=== PATIENT | female | born 1985 | race Two or more races ===

== ENCOUNTER 2016-08-10 22:42 | Emergency (ER) | payer BC, MEDICAID ==
[~2016-08-10] VITALS: Ht 165.1 cm; Wt 78.5 kg
[2016-08-10 23:00] VITALS: BP 112/68
--- NOTE | 2016-08-10 23:09 | Emergency Room Report ---
History of Present Illness General Chief Complaint: Abdominal Pain Source: Patient Present Illness HPI Is a 30-year-old female with history of "gastritis." He presents with right upper quadrant pain since 9:00. She said she get worse when she fatty food or spicy food. Pain radiates to her back into the left side. No diarrhea. She has occasional nausea and vomiting. Pain is 8/10. Worse with movement. Worse with palpation. No urinary complaint. Allergies: Coded Allergies: No Known Allergies (Unverified , 08/10/16) Patient History Past Medical History: none, see triage record, old chart reviewed Past Surgical History: none Pertinent Family History: none Social History: Denies: smoking Last Menstrual Period: 08/03/16 Now: No Immunizations: other Reviewed Nursing Documentation: PMH: Agreed, PSxH: Agreed Nursing Documentation-PMH Past Medical History: No Stated History Review of Systems Eye: Denies: blurred vision, eye pain ENT: Denies: ear pain, nose congestion, throat swelling Respiratory: Denies: cough, shortness of breath Cardiovascular: Denies: chest pain, palpitations Gastrointestinal: Reports: abdominal pain, nausea, vomiting, Denies: diarrhea Musculoskeletal: Denies: back pain, joint pain Skin: Denies: rash Neurological: Denies: headache, numbness Endocrine: Denies: increased thirst, increased urine Hematologic/Lymphatic: Denies: easy bruising All Other Systems: negative except mentioned in HPI Physical Exam Vital Signs Date Time Temp Pulse Resp B/P Pulse Ox O2 Delivery O2 Flow Rate FiO2 08/10/16 22:52 97.5 66 14 112/68 100 Room Air vitals normal Sp02 EP Interpretation: reviewed, normal General Appearance: well appearing, no apparent distress, alert Head: normocephalic, atraumatic Eyes: bilateral eye EOMI, bilateral eye PERRL ENT: hearing grossly normal, normal pharynx Neck: full range of motion, supple, no meningismus Respiratory: chest non-tender, lungs clear, normal breath sounds Cardiovascular #1: regular rate, rhythm, no murmur Gastrointestinal: normal bowel sounds, no mass, no organomegaly, no bruit, non- distended, tenderness - Right upper quadrant Musculoskeletal: back normal, gait/station normal, normal range of motion Neurologic: alert, oriented x3 Psychiatric: mood/affect normal Skin: warm/dry Medical Decision Making Diagnostic Impression: Primary Impression: Cholelithiases Qualified Codes: K80.20 - Calculus of gallbladder without cholecystitis without obstruction ER Course Patient presents with right upper quadrant pain consistent with gallstones. No evidence of obstruction or cholecystitis. Patient felt better now. No pain. My bedside ultrasound showed a normal gallbladder wall with multiple large gallstones. There were at least 4. Normal common bile duct. Negative Waters sign. Lab Results Impression labs normal Last Vital Signs Date Time Temp Pulse Resp B/P Pulse Ox O2 Delivery O2 Flow Rate FiO2 08/10/16 22:52 97.5 66 14 112/68 100 Room Air Status: improved Disposition: HOME, SELF-CARE Condition: Stable Scripts Hydrocodone/Acetaminophen 5-325* (HYDROCODONE/ACETAMINOPHEN 5-325*) 1 Each Tablet 1 TAB ORAL Q6H Y for For Pain, #30 TAB 0 Refills Prov: GREGG LOVING M.D. 08/11/16 Additional Instructions: Followup with your Dr. in 2-3 days. Return if symptom worsen. You may need a referral to see a surgeon. GREGG LOVING M.D. Aug 10, 2016 23:09
[2016-08-10] MEDS ORDERED: Morphine Sulfate 4mg/ml Inj IVP ONE (23:15)
[2016-08-10 23:23] LABS: APPEARANCE,URINE CLEAR; KETONES,URINE NEGATIVE (NEGATIVE); LEUKOCYTE ESTERASE ,URINE NEGATIVE (NEGATIVE); NITRITE,URINE NEGATIVE (NEGATIVE); PH,URINE 7 (4.5-8.0); PROTEIN,URINE NEGATIVE (NEGATIVE); UROBILINOGEN,URINE NORMAL MG/DL (0.0-1.0)
[2016-08-10 23:50] LABS: ALANINE AMINOTRANSFERASE 6 U/L (3-33); ALBUMIN/GLOBULIN RATIO 1.1 (1.0-2.7); ANION GAP 14 (5-15); ASPARTATE AMINO TRANSFERASE 11 U/L (5-40); CALCIUM 9.2 mg/dL (8.6-10.2); CARBON DIOXIDE 25 mEQ/L (20-30); CHLORIDE 98 mEQ/L (98-107); CREATININE 0.6 mg/dL (0.5-0.9); GLOMERULAR FILTRATION RATE > 60 mL/min (>60); HEMOLYSIS 6; LIPASE 78 U/L (< 60); POTASSIUM 3.6 mEQ/L (3.4-4.9); SODIUM 137 mEQ/L (135-145); TOTAL PROTEIN 7.6 g/dL (6.6-8.7)
[2016-08-11 00:03] LABS: BASOPHILS % (AUTO) 1.4 % (0.0-2.0); EOSINOPHILS % (AUTO) 1.3 % (0.0-3.0); LYMPHOCYTES % (AUTO) 33.8 % (20.0-45.0); MEAN CORPUSCULAR HEMOGLOBIN 31.3 PG (27.0-31.0); MEAN CORPUSCULAR HGB CONC 35.6 G/DL (32.0-36.0); MEAN CORPUSCULAR VOLUME 88 FL (80-99); MEAN PLATELET VOLUME 9.4 FL (6.5-10.1); MONOCYTES % (AUTO) 8.5 % (1.0-10.0); NEUTROPHILS % (AUTO) 55.1 % (45.0-75.0); PLATELET COUNT 159 K/UL (150-450); RED BLOOD COUNT 4.36 M/UL (4.20-5.40); RED CELL DISTRIBUTION WIDTH 11.6 % (11.6-14.8); WHITE BLOOD COUNT 7.4 K/UL (4.8-10.8)
[2016-08-11] MEDS ORDERED: HYDROCODON-ACE1 EA15 ORAL (00:32)
[2016-08-11 00:55] VITALS: BP 112/68
== END 2016-08-11 00:55 | disposition home or self-care (01) ==
LOC: EMR 23:12
DX: K80.20 Calculus of gallbladder without cholecystitis without obstruction (principal); M54.9 Dorsalgia, unspecified
CPT/HCPCS: 36415; 80053; 81003; 81025; 83690; 85025; 96374; 96375; 99284; J2270; J2405

== ENCOUNTER → 2016-08-20 | Outpatient (CLI) | payer BC ==
[~2016-08-20] MED LIST: HYDROCODON-ACE1 EA15 ORAL
--- NOTE | 2016-08-20 14:27 | Diagnostic Imaging Report ---
Indication:Abdominal pain Technique: Grayscale and duplex Doppler imaging of the abdomen performed. Comparison: None Findings: There are multiple gallstones demonstrated within the gallbladder. There is no wall thickening, pericholecystic fluid and sonographic Waters's is negative per technologist. The liver, demonstrated part of the pancreas, aorta and IVC, both kidneys, spleen appear unremarkable. There is no biliary ductal dilatation identified. Doppler evaluation of the main portal vein shows patency. CBD measures 2.8 mm. There is no ascites. No hydronephrosis seen. Impression: Cholelithiasis
== END | disposition home or self-care (01) ==
LOC: ULS 09:38
DX: K80.20 Calculus of gallbladder without cholecystitis without obstruction (principal)
CPT/HCPCS: 76700

== ENCOUNTER 2016-09-02 07:02 | Day surgery (SDC) | payer BC ==
--- NOTE | 2016-09-01 20:09 | Pre-op HX & Phy Repo 2 SIG ---
DATE OF ADMISSION: 09/02/2016 DATE OF SURGERY: The patient is scheduled for surgery on 09/02/2016. REASON FOR ADMISSION: Gallstones. HISTORY OF PRESENT ILLNESS: This is a 30-year-old 0, para 0, female, presents with a one-year history of episodic abdominal pain and nausea. She has had occasional vomiting with pain. She has noticed the pain after the ingestion of greasy food. The patient was in the [facility] emergency room three weeks ago after ingestion of pork. She denies any problems with fever or chills. There is no history of jaundice. PAST MEDICAL HISTORY: Previous surgeries, none. MEDICATIONS: Limited to vitamin. ALLERGIES: None known. SOCIAL HISTORY: Tobacco, none. Alcohol, rare consumption. Occupation, property management accountant. FAMILY HISTORY: His father is diabetic. The patient's mother has asymptomatic gallstones. REVIEW OF SYSTEMS: Essentially negative. She is a 0 para 0 female. PHYSICAL EXAMINATION: GENERAL: The patient is a well-developed and well-nourished female, in no acute distress. HEENT: Normocephalic. Pupils are equal and reactive to light. There is no scleral icterus. NECK: Supple without adenopathy. LUNGS: Clear. HEART: Regular rhythm. No murmurs or gallops. ABDOMEN: Soft. There are no masses or tenderness. EXTREMITIES: No clubbing, cyanosis, or edema. Peripheral pulses were intact. LABORATORY AND DIAGNOSTIC DATA: An ultrasound taken recently that showed multiple gallstones. There was no ductal dilatation. There was no thickening of the gallbladder wall. IMPRESSION: Cholelithiasis, recent biliary colic. PLAN: The patient was advised to undergo laparoscopic cholecystectomy, possible open cholecystectomy. The nature, risks and benefits of the procedure were explained. Pedro Meyers M.D. DR: CRISTINA JOB#: [id number] CC:
[2016-09-02] VITALS (14 sets, daily range): BP systolic 101–126; BP diastolic 47–66
[~2016-09-02] VITALS: Ht 165.1 cm; Wt 75.3 kg
[2016-09-02] MEDS ORDERED: VITAMIN D1000 UNI1 ORAL (07:41)
--- NOTE | 2016-09-02 09:19 | Pre-Procedure Note/Attestation ---
Pre-Procedure Note/Attestation Complete Prior to Procedure Planned Procedure: not applicable Procedure Narrative: laparoscopic cholecystectomy, possible open cholecystectomy Indications for Procedure Pre-Operative Diagnosis: cholelithiasis Attestation I attest that I discussed the nature of the procedure; its benefits; risks and complications; and alternatives (and the risks and benefits of such alternatives ), prior to the procedure, with the patient (or the patient's legal physician representative). I attest that, if there was a reasonable possibility of needing a blood transfusion, the patient (or the patient's legal physician representative) was given the [facility] standardized written summary, pursuant to the Rommel Lois Blood Safety Act ([place] Health and Safety Code # 1645, as amended). I attest that I re-evaluated the patient just prior to the surgery and that there has been no change in the patient's H&P, except as documented below: none Pedro Meyers MD September 02, 2016 09:19
[2016-09-02] MEDS ORDERED: Bupivacaine w/Epi 0.25% 30ml Vial INJ ONE (10:42)
[2016-09-02] MEDS ORDERED: Propofol 10mg/ml 20ml IV ONE (10:42)
[2016-09-02] MEDS ORDERED: Nimbex 2mg/ml Inj 10ML IVP ONE ×2 (10:42→11:00)
[2016-09-02] MEDS ORDERED: Neostigmine 1mg/ml 10ml Inj ONE ×2 (10:43→11:00)
[2016-09-02] MEDS ORDERED: Midazolam 2mg/2ml Inj ONE (11:00)
[2016-09-02] MEDS ORDERED: Glycopyrrolate 0.2mg/ml 1ml Vial ONE (11:00)
[2016-09-02] MEDS ORDERED: NS Irrig 1000ml ONE (11:00)
[2016-09-02] MEDS ORDERED: Lidocaine 1% MPF 10mg/ml 5ml ONE (11:00)
[2016-09-02] MEDS ORDERED: LR 1000ml ONE (11:00)
[2016-09-02] MEDS ORDERED: Dexamethasone 4mg/ml vial ONE (11:00)
[2016-09-02] MEDS ORDERED: Metoclopramide 10mg/2ml Inj ONE (11:00)
[2016-09-02] MEDS ORDERED: fentaNYL 100 mcg/2 mL IV ONE (11:00)
--- NOTE | 2016-09-02 12:26 | Brief Operative Note ---
Immediate Post Operative Note Operative Note Pre-op Diagnosis: cholelithiasis Procedure: laparoscopic cholecystectomy Post-op Diagnosis: cholelithiasis Surgeon: Vannesa Meyers MD Quality Eng: Shirin Aviles MD Anesthesiologist: Poly Klein CRNA Anesthesia: general Specimen: yes Complications: none Condition: stable Estimated Blood Loss: minimal Drains: none Implant(s) used?: No Pedro Meyers MD September 02, 2016 12:26
--- NOTE | 2016-09-02 12:29 | Immediate Post-Op Evaluation ---
Immediate Post-Op Evalulation Immediate Post-Op Evalulation Procedure: Lap Yelitza Date of Evaluation: September 02, 2016 Time of Evaluation: 12:29 IV Fluids: 600 Blood Pressure Systolic: 120 Blood Pressure Diastolic: 60 Pulse Rate: 50 Respiratory Rate: 14 O2 Sat by Pulse Oximetry: 100 Temperature (Fahrenheit): 97.1 Nausea: No Vomiting: No Complications none Patient Status: awake, reacts Hydration Status: adequate Drug: ancef Given Within 1 Hr of Incision: Yes LYNNETTE GARCIA CRNA September 02, 2016 12:29
[2016-09-02] MEDS ORDERED: HYDROmorphone 1mg/ml Carpuject SUBQ PRN (12:30)
[2016-09-02] MEDS ORDERED: D5 1/2NS 1,000 ML IV SCH (12:30)
[2016-09-02] MEDS ORDERED: Meperidine 25mg/0.5ml Inj IV PRN (12:30)
[2016-09-02] MEDS ORDERED: fentaNYL 100 mcg/2 mL IV PRN (12:30)
[2016-09-02] MEDS ORDERED: Tylenol #3 tab (300mg/30mg) ORAL PRN (12:30)
--- NOTE | 2016-09-02 12:31 | Anethesia Preoperative Eval ---
Anesthesia Pre-op PMH/ROS General Date of Evaluation: September 02, 2016 Time of Evaluation: 11:00 Anesthesiologist: laura ASA Score: ASA 2 Mallampati Score Class I : Soft palate, uvula, fauces, pillars visible Class II: Soft palate, uvula, fauces visible Class III: Soft palate, base of uvula visible Class IV: Only hard plate visible Mallampati Classification: Class II Surgeon: arthur Diagnosis: cholecystitis Surgical Procedure: Lap Yelitza Anesthesia History: none Family History: no anesthesia problems Allergies: Coded Allergies: No Known Allergies (Unverified , 08/10/16) Medications: see eMAR Past Medical History Cardiovascular: Denies: CAD, HTN, [place], arrhythmia, other, valve dz Pulmonary: Denies: COPD, TSERING, asthma, other Gastrointestinal/Genitourinary: Denies: CRI, ESRD, GERD, other Neurologic/Psychiatric: Denies: CVA, TIA, dementia, depression/anxiety, other Hematology/Immune: Denies: DVT, anemia, bleeding disorder, other Musculoskeletal/Integumentary: Denies: DDD, DJD, OA, RA, edema, other PSxH Narrative: none Anesthesia Pre-op Phys. Exam Physician Exam Last Vital Signs Date Time Temp Pulse Resp B/P Pulse Ox O2 Delivery O2 Flow Rate FiO2 09/02/16 07:25 98.7 76 18 108/66 98 Room Air Constitutional: NAD Neurologic: CN 2-12 intact Cardiovascular: RRR Respiratory: CTA Gastrointestinal: S/NT/ND Airway Exam Mallampati Classification 2 Mallampati Score: Class II ROM: full Dentures: no lower, no upper Anesthesia Pre-op A/P Labs Urine Test Test 09/02/16 07:20 Urine HCG, Qualitative Negative Studies Pre-op Studies: EKG - sr Risk Assessment & Plan Plan: general Status Change Before Surgery: No Pre-Antibiotics Drug: ancef Given Within 1 Hr of Incision: Yes Time Given: 11:15 LYNNETTE GARCIA CRNA September 02, 2016 12:31
--- NOTE | 2016-09-02 12:37 | 48 Hour Post Anesthesia Eval ---
Post Anesthesia Evaluation Procedure: Lap Yelitza Date of Evaluation: September 02, 2016 Time of Evaluation: 12:36 Blood Pressure Systolic: 120 0: 60 Pulse Rate: 74 Respiratory Rate: 14 O2 Sat by Pulse Oximetry: 100 Airway: patent Nausea: No Vomiting: No Hydration Status: adequate Mental Status/LOC: patient returned to baseline Post-Anesthesia Complications: none Follow-up care needed: N/A LYNNETTE GARCIA CRNA September 02, 2016 12:37
[2016-09-02] MEDS ORDERED: Norco 5mg/325mg tab ORAL PRN (14:00)
--- NOTE | 2016-09-02 23:38 | Operative Note - Dictated ---
DATE OF OPERATION: 09/02/2016 PREOPERATIVE DIAGNOSIS: Cholelithiasis. POSTOPERATIVE DIAGNOSIS: Cholelithiasis. PROCEDURE: Laparoscopic cholecystectomy. SURGEON: ePdro Meyers M.D. NOVELTY PRINTING MACHINE OPERATOR: Shai Aviles M.D. INDICATIONS FOR SURGERY: This 30-year-old female presented with a one-year history of intermittent upper abdominal pain, accompanied by nausea. She was seen in the emergency room approximately one month prior to surgery with an attack of upper abdominal pain. Studies at that time revealed cholelithiasis on an ultrasound. She was found to have normal liver enzymes. She was advised to undergo a laparoscopic cholecystectomy. The nature of risks and benefits of the procedure were explained. OPERATIVE FINDINGS: Exploration of the abdominal cavity revealed no ascites. The liver was normal in size and texture. The gallbladder had a pliable wall. There were multiple stones in the gallbladder. The cystic duct was not dilated. No abnormalities are noted on the stomach or duodenum. OPERATIVE TECHNIQUE: With the patient in the supine position after induction of adequate general anesthesia, the abdomen was prepped and draped in sterile fashion. A time-out was called. A very small transverse incision was made below the umbilicus. A Veress needle was introduced into the peritoneal cavity. The intraperitoneal position was confirmed by saline instillation and the drop test. The abdomen was insufflated with 4 liters of carbon dioxide. The Veress needle was removed. The 5 mm trocar was introduced. The abdomen was inspected with the 30-degree angle 5 mm laparoscope and a 11 mm trocar was introduced in the subxiphoid region slightly to the right of the midline. Two 5 mm ports were introduced in the mid-abdomen near the anterior axillary line and the midclavicular line. Through the lateral 5 mm port, the fundus of the gallbladder was elevated. Some flimsy adhesions from the omentum to the fundus of the gallbladder were taken down by blunt dissection. The neck of the gallbladder was grasped with a ratcheted grasper with mid 5 mm trocar. The cystic duct was slowly identified and encircled. The cystic duct was doubly hemoclipped and divided. The cystic artery was dissected. This was also doubly hemoclipped and divided. The gallbladder was dissected off of the liver bed by blunt dissection and electrocautery. The gallbladder was removed through the subxiphoid port with the help of an EndoCatch apparatus. The subhepatic space was irrigated and aspirated. The liver bed was inspected. Several oozing points were cauterized. The right subphrenic space was irrigated and aspirated. There was no evidence of hemorrhage nor bile leak. The trocars were removed under laparoscopic visualization. The pneumoperitoneum was reversed. The subxiphoid incision was closed with a [id number], 0 Vicryl [id number] suture. The subcutaneous tissue was closed with a 4-0 Vicryl subcutaneous suture. The skin was closed with a running 4-0 Vicryl subcuticular stitch. The 5 mm puncture wounds were closed with interrupted 4-0 Vicryl subcuticular sutures. The puncture wounds were injected with 0.25 Marcaine with epinephrine solution. Sterile dressings were applied. The patient tolerated the procedure well and was returned to the recovery room in stable condition. ESTIMATED BLOOD LOSS: Less than 10 mL. Pedro Meyers M.D. DR: Alba JOB#: [id number] CC:
== END 2016-09-02 14:50 | disposition home or self-care (01) ==
LOC: SUR 07:02
DX: K80.10 Calculus of gallbladder with chronic cholecystitis without obstruction (principal)
CPT/HCPCS: 47562; 81025; J0690; J1100; J2250; J2405; J2704; J2710; J2765; J3010; J7120; 94003; 94150; J2180